=== PATIENT | male | born 1985 | race Caucasian/White ===

== ENCOUNTER → 2024-01-03 15:33 | Outpatient (REF) | payer OTHER, SELFPAY | LOC: HWRAD 15:33 | PROVIDERS: ATTENDING PHYSICIAN Nurse Practitioner Family | DX: R91.1 Solitary pulmonary nodule (principal) | CPT/HCPCS: 71250 ==

== ENCOUNTER → 2024-12-30 10:01 | Outpatient (REF) | payer OTHER, SELFPAY | LOC: HWRAD 10:01 | PROVIDERS: ATTENDING PHYSICIAN Nurse Practitioner Family | DX: R91.1 Solitary pulmonary nodule (principal) | CPT/HCPCS: 71250 ==

== ENCOUNTER 2025-08-24 07:19 | Emergency (ER) | payer OTHER, SELFPAY ==
[2025-08-24 07:28] VITALS: BP 143/81
--- NOTE | 2025-08-24 09:35 | ED.GENMED ---
History of Present Illness
General
Chief Complaint: Musculo-Skeletal Complaint
Source: patient
Time Seen by Provider: 08/24/25 09:21
History of Present Illness
History of Present Illness:
40-year-old male presenting to the emergency department for evaluation of right anterior shoulder pain that started last night after an accidental trip and fall, notes that at rest pain is minimal but with attempted movement he has much more pain in
the anterior portion of the shoulder. He does note his range of motion is very limited. Notes that he has previously dislocated the same shoulder in the past. No other injuries were sustained
Past History
Past History
ED Past Medical History: Other (Celiac disease)
ED Past Surgical History: Other ([place] teeth)
Social History
Tobacco: Former smoker
Alcohol: Occasional
Drug: None
Personal: Single
Living: with family
Family History
Family History: Negative Early CAD or CAD
Review of Systems
Review of Systems
All Other Systems: ROS reviewed and negative except as documented in HPI and ROS
Phy Exam
Physical Exam
Physical Exam:
GENERAL: Alert , in no apparent distress
EYE: conjunctiva clear
Head: Normocephalic atraumatic
NECK: Supple,
ENT: mmm.
LUNGS: no acute respiratory distress
NEUROLOGICAL: Alert and oriented
SKIN: Warm and dry, skin intact.
MUSCULOSKELETAL: Right upper extremity: No obvious deformity, erythema, edema, ecchymosis, abrasion or laceration. Range of motion is limited with forward flexion and abduction secondary to pain. Tenderness over the AC joint but no palpable bony
step-off or tenting of the skin. Extremity is otherwise warm well-perfused and neurovascularly intact.
PSYCH: Normal and appropriate interaction.
Scores
Heart Failure Risk
Heart Failure Risk Score: Not Applicable
Heart Score for Chest Pain Patients
STEMI patient?: Not applicable
Withdrawal Assessment of Alcohol
Withdrawal Assessment Completed?: Not applicable
Course
Orders/Labs/Results
Orders:
Orders
08/24/25 07:32
Shoulder, Right, Trauma [CR Shoulder, Trauma - Right] Urgent
Comment:
Reason For Exam: pain
Vital Signs
Initial and Last Documented VS:
Initial Vital Signs
Temp Pulse Resp BP Pulse Ox
98.2 F 71 18 143/81 100
08/24/25 07:28 08/24/25 07:28 08/24/25 07:28 08/24/25 07:28 08/24/25 07:28
Last Documented Vital Signs
Temp Pulse Resp BP Pulse Ox
98.2 F 72 18 131/70 98
08/24/25 07:28 08/24/25 10:12 08/24/25 10:12 08/24/25 10:12 08/24/25 10:12
MDM/Problems Addressed
Differential Diagnosis Includes:
Shoulder sprain
Fracture
Dislocation
Subluxation
AC joint sprain
Clavicle fracture
Rib Fracture
MDM/Problems Addressed:
40-year-old male presenting to the emergency department for evaluation of right shoulder pain following an accidental injury. Diminished range of motion noted. X-ray ordered from triage does appear to show a mild AC joint separation. Patient
advised on these findings. Sling ordered but patient refuses sling. Advised NSAIDs/Tylenol as needed for pain. Information for orthopedics provided. Stable for discharge.
*Radiology
Radiology exam reviewed: preliminary read by ED provider (Suspected AC joint separation)
*Pulse Oximetry
SaO2: 100
Oxygen Mode of Delivery: Room air
Patient hypoxic: no
*Critical Care Note
Total Time (30-74mins, 75-104mins- exclusive of procedures): Not Applicable
ED Attending Note
-
Portions of this chart may have been created with voice recognition software.� Occasional wrong word or��sound alike� substitutions may have occurred due to the inherent limitations of voice recognition software.
Discharge Plan
Departure
Patient Disposition: Home (Routine Discharge)
Date of Disposition: 08/24/25
Time of Disposition: 09:36
Patient with high blood pressure during this ER visit?: Yes
Discharge Problem:
Sprain of right acromioclavicular joint
Instructions: Shoulder Sprain ED
Prescriptions:
No Action
No Current Medications
0
Referrals:
Spencer Whitt CRNP [Family Provider, Family Practice]
Aline Carcamo I., DO [Active, Orthopedics]
Interventions
Interventions:
*Risk Screen - Suicide Last Done: 08/24/25 07:28
*General Assessment Last Done: 08/24/25 07:28
*Neglect/Abuse Screening Last Done: 08/24/25 10:10
*ED- Fall Risk Assessment Last Done: 08/24/25 10:12
*ED COVID-19 Vaccine History Last Done: 08/24/25 10:10
*ED Influenza Vaccine History Last Done: 08/24/25 10:10
*Nursing Disposition Last Done: 08/24/25 10:12
ED-Musculoskeletal Assessment Last Done: 08/24/25 10:10
Discharge Date and Time
Discharge Date/Time: 08/24/25 10:14
Print Language: ARABIC
[2025-08-24 10:12] VITALS: BP 131/70
== END 2025-08-24 10:14 | disposition home or self-care (01) ==
LOC: EMR 07:19
PROVIDERS: EMERGENCY PHYSICIAN Student in an Organized Health Care Education/Training Program; FAMILY PHYSICIAN Nurse Practitioner Family
DX: S43.51XA Sprain of right acromioclavicular joint, initial encounter (principal); W01.0XXA Fall on same level from slipping, tripping and stumbling without subsequent striking against object, initial encounter; Z87.891 Personal history of nicotine dependence
CPT/HCPCS: 99283; 73030